=== PATIENT | female | born 1960 | race Caucasian/White ===

== ENCOUNTER 2020-07-07 00:34 | Emergency (ER) | payer BC ==
[~2020-07-07] VITALS: Ht 162.6 cm; Wt 81.6 kg
[~2020-07-07 00:34] MED LIST: CLIN300C3 PO
[2020-07-07 00:55] VITALS: BP_SYST 124
--- NOTE | 2020-07-07 00:55 | NUR ---
Pt c/o pain to left lateral foot after stepping on a ball-sized seed from a tree last night. Initially able to bear weight and walk without any difficulty. However after some hours, her pain intensified prompting this ED visit. Pt was unable to bear weight in the emergency department. No numbness, tingling, motor weakness, fall/head strike, pain elsewhere or assault. Pt V/S within normal limits, awaiting ER MD james.
--- NOTE | 2020-07-07 00:58 | NUR ---
Pt back to waiting room in stable condition
--- NOTE | 2020-07-07 03:00 | NUR ---
Patient resting quietly. No acute distress noted. Vital signs within normal range.
--- NOTE | 2020-07-07 03:41 | NUR ---
ER in triage examining patient.
[2020-07-07] MEDS ORDERED: IBUPROFEN 800 MG TABLET PO ONE (04:15)
[2020-07-07] MEDS ORDERED: IBUPROFEN 400 MG TABLET ONE (04:17)
[2020-07-07 05:30] VITALS: BP_SYST 128
--- NOTE | 2020-07-07 05:30 | NUR ---
Patient given written and verbal discharge instructions and verbalizes understanding. ER MD discussed with patient the results and treatment provided. Patient in stable condition. ID arm band removed. Rx of Motrin 600 mg given. Patient educated on pain management and to follow up with PMD. Pain Scale 5/10. Opportunity for questions provided and answered.
== END 2020-07-07 05:30 | disposition home or self-care (01) ==
LOC: SED 00:34
DX: S93.692A Other sprain of left foot, initial encounter (principal); S93.492A Sprain of other ligament of left ankle, initial encounter; W22.8XXA Striking against or struck by other objects, initial encounter; Y93.89 Activity, other specified; Y92.89 Other specified places as the place of occurrence of the external cause; Y99.8 Other external cause status
CPT/HCPCS: 99284